=== PATIENT | male | born 1995 | race Two or more races ===

== ENCOUNTER → 2021-12-16 | Outpatient (REF) | payer OTHER ==
[2021-12-16 19:33] LABS: GC DNA AMPLIFICATION NEGATIVE (NEGATIVE)
== END ==
LOC: M LAB REF 16:20
PROVIDERS: ATTEND Physician Assistant Medical
DX: Z11.3 Encounter for screening for infections with a predominantly sexual mode of transmission (principal)

== ENCOUNTER 2022-01-30 20:06 | Emergency (ER) | payer OTHER ==
[~2022-01-30] VITALS: Ht 182.9 cm; Wt 88.6 kg
[2022-01-30 20:08] VITALS: BP 119/60
== END 2022-01-30 22:04 | disposition left against medical advice (07) ==
LOC: M ED 20:06
DX: Z53.21 Procedure and treatment not carried out due to patient leaving prior to being seen by health care provider (principal)

== ENCOUNTER → 2023-10-29 | Outpatient (CLI) | payer OTHER | LOC: M SOG 12:54 | PROVIDERS: ATTEND Physician Assistant | DX: M79.645 Pain in left finger(s) (principal) ==

== ENCOUNTER 2023-11-02 09:00 | Day surgery (SDC) | payer OTHER ==
[~2023-11-02] VITALS: Ht 180.3 cm; Wt 91.9 kg
[~2023-11-02 09:00] MED LIST: LIDOCAINE W/EPINEPHRINE 1% 20ML VIAL XX ONE
[2023-11-02] MEDS: LIDOCAINE 1% MDV 20ML VIAL SC ONE (10:00)
[2023-11-02] MEDS: SODIUM BICARBONATE 8.4% INJ 50MEQ 50ML VIAL XX ONE (10:00)
[2023-11-02] MEDS: BACITRACIN OINTMENT 30GM TUBE As Ordered ONE (10:00)
[2023-11-02 11:10] VITALS: BP 116/72; TEMP 98.7; O2SAT 98
[2023-11-02] MEDS ORDERED: PERC5TAB12 PO (11:14)
== END 2023-11-02 11:24 | disposition home or self-care (01) ==
LOC: M SDC 09:00
PROVIDERS: ATTEND Orthopaedic Surgery Hand Surgery
DX: M20.012 Mallet finger of left finger(s) (principal)

== ENCOUNTER → 2024-01-10 | Outpatient (CLI) | payer OTHER ==
[~2024-01-10] MED LIST changes: -LIDOCAINE W/EPINEPHRINE 1% 20ML VIAL XX ONE; +PERC5TAB12 PO
== END ==
LOC: M SOG 11:07
PROVIDERS: ATTEND Orthopaedic Surgery Hand Surgery
DX: M20.012 Mallet finger of left finger(s) (principal)

== ENCOUNTER → 2024-04-18 | Outpatient (CLI) | payer OTHER | LOC: M SOG 15:43 | PROVIDERS: ATTEND Physician Assistant | DX: M20.012 Mallet finger of left finger(s) (principal) ==

== ENCOUNTER 2024-04-23 10:26 | Day surgery (SDC) | payer OTHER ==
[~2024-04-23] VITALS: Ht 182.9 cm; Wt 94.1 kg
[2024-04-23] MEDS ORDERED: LIDOCAINE 1% SDV 30ML VIAL XX ONE (11:05)
[2024-04-23] MEDS ORDERED: SODIUM BICARBONATE 8.4% INJ 50MEQ 50ML VIAL XX ONE (11:05)
[2024-04-23] MEDS: BACITRACIN OINTMENT 30GM TUBE As Ordered ONE (15:15)
[2024-04-23 15:28] VITALS: BP 125/73; TEMP 98.5; O2SAT 100
[2024-04-23] MEDS ORDERED: PERC5TAB12 PO (15:37)
== END 2024-04-23 15:49 | disposition home or self-care (01) ==
LOC: M SDC 10:26
PROVIDERS: ATTEND Orthopaedic Surgery Hand Surgery
DX: M20.012 Mallet finger of left finger(s) (principal)
CPT/HCPCS: 26418; 26432; 76000; J0665

== ENCOUNTER → 2024-05-02 | Outpatient (CLI) | payer OTHER | LOC: M SOG 07:54 | PROVIDERS: ATTEND Physician Assistant | DX: M20.012 Mallet finger of left finger(s) (principal) ==

== ENCOUNTER → 2024-05-27 | Outpatient (CLI) | payer OTHER | LOC: M SOG 15:24 | PROVIDERS: ATTEND Physician Assistant | DX: M20.012 Mallet finger of left finger(s) (principal) ==

== ENCOUNTER → 2024-06-30 | Outpatient (CLI) | payer OTHER | LOC: M SOG 07:48 | PROVIDERS: ATTEND Physician Assistant | DX: M20.012 Mallet finger of left finger(s) (principal) ==

== ENCOUNTER → 2025-01-01 | Outpatient (CLI) | payer OTHER | LOC: M RAD 07:31 | PROVIDERS: ATTEND Nurse Practitioner Family | DX: M25.572 Pain in left ankle and joints of left foot (principal); R60.0 Localized edema ==

== ENCOUNTER → 2025-04-16 | Outpatient (REF) | LOC: M PLAIMG 10:49 | PROVIDERS: ATTEND Internal Medicine | DX: Z01.89 Encounter for other specified special examinations (principal) ==